=== PATIENT | female | born 1995 | race Caucasian/White ===

== ENCOUNTER 2022-04-26 23:40 | Inpatient (IN) ==
[2022-04-27] MEDS ORDERED: VANCOMYCIN CONSULT ACTIVE PRN ×2 (00:12→05:45)
[2022-04-27] MEDS ORDERED: PIPERACILLIN/TAZOBACTAM 4.5 GM/120 ML BAG IV ONE (00:12)
[2022-04-27] MEDS ORDERED: VANCOMYCIN HCL 2,250 MG in SODIUM CHLORIDE 0.9% 500 ML IV ONE (00:12)
[2022-04-27] MEDS ORDERED: SODIUM CHLORIDE 0.9% 1000ML 1,000 ML IV ONE (00:12)
[2022-04-27] MEDS ORDERED: ONDANSETRON INJ 2 MG/ML 2 ML VIAL IV STA (00:14)
[2022-04-27] MEDS ORDERED: MoRPHine SULFATE 4 MG/ML 1 ML CARP\\VIAL IV STA ×2 (00:14→02:20)
[2022-04-27] MEDS ORDERED: diphenhydrAMINE 50 MG/ML VIAL IV STA (00:14)
[2022-04-27] MEDS ORDERED: SODIUM CHLORIDE 0.9% 1000ML 1,000 ML IV SCH (00:15)
[2022-04-27 00:48] LABS: Appearance Urine Cloudy (Clear); Bacteria Urine Automated Negative (Negative); Bilirubin Urine Negative (Negative); Blood Urine Negative (Negative); Color Urine Yellow; Epithelial Cell Urine Auto >30 /lpf (0-5); Glucose Urine UA Negative (Negative); Ketones Urine Trace (Negative); Leukocyte Esterase Urine Trace (Negative); Nitrite Urine Negative (Negative); Protein Urine Trace (Negative); RBC Urine Automated 0-4 /hpf (0-4); Specific Gravity Urine 1.031 (1.000-1.030); Urobilinogen Urine Negative (Negative); pH Urine 5.5 (4.5-7.5)
--- NOTE | 2022-04-27 00:52 | Emergency Department Note ---
History of Present Illness General Chief complaint: Nausea Stated complaint: FEVER, NAUSEA,SOB Time Seen by Provider: 04/27/22 00:01 History of Present Illness Maximum Pain Intensity: 9 This 27-year-old female with a history of sepsis and gastroparesis with a PICC line in presents the ER complaining of fever, chills, abdominal pain with concerns for sepsis. Patient has paperwork from her family doctor as she is from [place] which outlines her treatment plan. Patient states she she feels like she is septic again and is concerned about her abdominal pain. Patient denies chest pain, neck stiffness, sore throat. Patient states she was septic last January. Home Medications Medication Instructions Recorded Confirmed Type alprazolam 0.5 mg disintegrating 0.5 mg PO TID PRN Anxiety 04/27/22 04/27/22 History tablet budesonide-formoterol HFA 160 2 puff inhalation BID 04/27/22 04/27/22 History mcg-4.5 mcg/actuation aerosol inhaler (Symbicort) oxycodone 5 mg/5 mL oral solution 5 mg PO Q4 04/27/22 04/27/22 History Allergies Allergy/AdvReac Type Severity Reaction Status Date / Time dicyclomine [From Bentyl] Allergy Severe Anaphylaxis Verified 05/22/21 22:54 levofloxacin [From Levaquin] Allergy Intermediate ITCHY HIVES Verified 05/22/21 22:54 metoclopramide [From Reglan] Allergy Intermediate ITCHY HIVES Verified 05/22/21 22:54 Past Med/Surg History Medical History Gastroparesis Surgical History History of appendectomy History of cholecystectomy Social History Smoking Status: Never smoker Preferred Language: Citizen Of [place] Feels Safe at Home: Yes Review of Systems A total of 10 systems reviewed and were otherwise negative Physical Exam Vital Signs Vital Signs - 24 hr 04/26/22 23:53 04/27/22 01:24 04/27/22 02:00 Temperature 37.4 C Temperature Source Oral Pulse Rate 112 H 103 H 105 H Respiratory Rate 22 15 17 Respiratory Effort / Characteristics Non-Labored Spontaneous Respiratory Depth Normal Blood Pressure 135/100 116/78 114/74 Blood Pressure Mean 111 90 87 Pulse Oximetry 100 96 97 Oxygen Delivery Method Room Air Room Air Room Air Sepsis Recent Fever Within 48 Hours Yes Sepsis New/Unexplained Change in Mental Status No Sepsis Action Taken by Nursing Physician Notified 04/27/22 02:30 Temperature Temperature Source Pulse Rate 101 H Respiratory Rate 17 Respiratory Effort / Characteristics Respiratory Depth Blood Pressure 121/81 Blood Pressure Mean 94 Pulse Oximetry 97 Oxygen Delivery Method Room Air Sepsis Recent Fever Within 48 Hours Sepsis New/Unexplained Change in Mental Status Sepsis Action Taken by Nursing VITALS: Vitals are noted on the nurse's note and reviewed by myself. Vital signs low-grade fever. GENERAL: Pleasant female, in no acute distress, nondiaphoretic, well-developed well-nourished. SKIN: The skin was without rashes, erythema, edema, or bruising. There is no tenting of the skin. Capillary reflex less than 2 seconds. HEAD: Normocephalic atraumatic. EARS: External auditory canals clear, tympanic membranes pearly smith without erythema or effusion bilaterally. EYES: Pupils equal round and reactive to light and accommodation. Conjunctivae without injection, sclerae without icterus. Extraocular movements intact. NOSE: Patent, turbinates without inflammation or discharge. MOUTH: Mucous membranes moist. Pharynx without erythema or exudate. Uvula midline. Airway patent. Tongue does not deviate. NECK: Supple without nuchal rigidity. No lymphadenopathy. No thyromegaly. Cervical spine is nontender. No JVD. HEART: Regular rate and rhythm LUNGS: Clear to auscultation bilaterally without wheezes, rales or rhonchi. No retractions or accessory muscle use. ABDOMEN: Positive bowel sounds x 4. Normal tympanic percussion. Soft, tender mid abdomen, without masses or organomegaly. Mishra sign negative. No guarding or rebound tenderness. No CVA tenderness MUSCULOSKELETAL: No muscle atrophy, erythema, or edema noted. NEURO: Patient was alert and oriented to person place and time. Normal sensation to light and sharp touch. No focal neurological deficits. Course Administered Medications Discontinued Medications Diphenhydramine HCl (Diphenhydramine 50 Mg/Ml Vial) 50 mg IV NOW STA Stop: 04/27/22 00:15 Last Admin: 04/27/22 01:00 Dose: 50 mg Documented By: YANA Sodium Chloride (Nss 1000ml) 1,000 mls @ 999 mls/hr IV .Q1H1M WILBERT Stop: 04/27/22 01:15 Last Admin: 04/27/22 02:28 Dose: 999 mls/hr Documented By: YANA Sodium Chloride (Nss 1000ml) 1,000 mls @ 999 mls/hr IV .Q1H1M ONE Stop: 04/27/22 01:12 Last Infusion: 04/27/22 02:35 Dose: 0 mls/hr Documented By: Admin: 04/27/22 01:00 Dose: 999 mls/hr Documented By: YAAN Piperacillin Sod/Tazobactam Sod (Zosyn) 4.5 gm in 120 mls @ 240 mls/hr IV NOW ONE Stop: 04/27/22 00:41 Last Infusion: 04/27/22 01:35 Dose: 0 mls/hr Documented By: Admin: 04/27/22 01:04 Dose: 240 mls/hr Documented By: YANA Vancomycin HCl 2,250 mg/ (Sodium Chloride) 545 mls @ 200 mls/hr IV NOW ONE Stop: 04/27/22 02:55 Last Admin: 04/27/22 00:25 Dose: 200 mls/hr Documented By: YANA Ioversol (Optiray 350 100ml) 86 ml IV ONCE ONE Stop: 04/27/22 01:52 Last Admin: 04/27/22 01:51 Dose: 86 ml Documented By: ALEXANDER Lorazepam (Lorazepam 2 Mg/1 Ml Vial) 1 mg IV NOW STA Stop: 04/27/22 02:21 Last Admin: 04/27/22 02:26 Dose: 1 mg Documented By: YANA Morphine Sulfate (Morphine Sulfate 4 Mg/Ml 1 Ml Carp\Vial) 4 mg IV NOW STA Stop: 04/27/22 00:15 Last Admin: 04/27/22 01:04 Dose: 4 mg Documented By: YANA Morphine Sulfate (Morphine Sulfate 4 Mg/Ml 1 Ml Carp\Vial) 4 mg IV NOW STA Stop: 04/27/22 02:21 Last Admin: 04/27/22 02:27 Dose: 4 mg Documented By: YANA Ondansetron HCl (Ondansetron Inj 2 Mg/Ml 2 Ml Vial) 4 mg IV NOW STA Stop: 04/27/22 00:15 Last Admin: 04/27/22 01:00 Dose: 4 mg Documented By: YANA Medical Decision Making Medical Records Attestation: I reviewed the patient's medical records. Home Medications Current Medication List: was personally reviewed by me Laboratory Data Attestation: I reviewed the patient's lab results. 04/27/22 00:20 04/27/22 00:20 Lab Results 04/27/22 04/27/22 04/27/22 Range/Units 00:05 00:20 00:20 WBC 8.09 (4.8-10.8) K/ul RBC 4.87 (4.20-5.40) M/uL Hgb 14.5 (12.0-16.0) g/dl Hct 42.5 (37.0-47.0) % MCV 87.3 (80.0-100.0) fL MCH 29.8 (25.0-34.0) pg MCHC 34.1 (32.0-36.0) g/dL RDW Std Deviation 40.0 (36.4-46.3) fL RDW Coeff of Dawson 12.8 (11.5-14.5) % Plt Count 271 (130-400) K/uL MPV 11.9 (9.4-12.4) fL Immature Gran % (Auto) 0.1 % Neut % (Auto) 51.7 % Lymph % (Auto) 33.1 % Weston % (Auto) 8.4 % Eos % (Auto) 5.2 % Baso % (Auto) 1.5 % Neut # (Auto) 4.18 (1.40-6.50) K/uL Lymph # (Auto) 2.68 (1.2-3.4) K/uL Weston # (Auto) 0.68 H (0.11-0.59) K/uL Eos # (Auto) 0.42 (0-0.50) K/uL Baso # (Auto) 0.12 (0-0.2) K/uL Immature Gran # (Auto) 0.01 (0.01-0.20) K/uL Sodium 139 (136-145) mmol/L Potassium 3.3 L (3.5-5.1) mmol/L Chloride 105 (98-107) mmol/L Carbon Dioxide 26 (21-32) mmol/L Anion Gap 8 (3-11) BUN 11 (6-23) mg/dl Creatinine 1.04 (0.6-1.2) mg/dl Est Cr Clr Drug Dosing 94.3 ml/min Est GFR ( Amer) 84.7 ml/min Est GFR (Non-Af Amer) 73.1 ml/min BUN/Creatinine Ratio 10.6 (10-20) Glucose 63 L (70-99(Fasting)) mg/dl POC Glucose (70-99) mg/dl Lactate (0.4-2.0) mmol/L Calcium 9.8 (8.5-10.1) mg/dl Magnesium 1.9 (1.7-2.4) mg/dl Total Bilirubin 0.5 (0.2-1.0) mg/dl Direct Bilirubin 0.0 (0-0.2) mg/dl AST 21 (13-39) U/L ALT 16 (7-52) U/L Alkaline Phosphatase 61 (34-104) U/L Troponin I High Sens 3.0 (0-14) pg/ml Total Protein 9.2 H (6.0-8.3) gm/dl Albumin 4.9 (3.4-5.0) gm/dl Lipase 19 (11-82) U/L Procalcitonin (0-0.5) ng/ml HCG, Qual (Negative) Urine Color Yellow Urine Appearance Cloudy A (Clear) Urine pH 5.5 (4.5-7.5) Ur Specific Turner 1.031 H (1.000-1.030) Urine Protein Trace H (Negative) Urine Glucose (UA) Negative (Negative) Urine Ketones Trace H (Negative) Urine Blood Negative (Negative) Urine Nitrite Negative (Negative) Urine Bilirubin Negative (Negative) Urine Urobilinogen Negative (Negative) Ur Leukocyte Esterase Trace H (Negative) Urine WBC (Auto) 5-10 H (0-5) /hpf Urine RBC (Auto) 0-4 (0-4) /hpf U Hyaline Cast (Auto) 1-5 (0-5) /lpf U Epithel Cells (Auto) >30 H (0-5) /lpf Urine Bacteria (Auto) Negative (Negative) Adenovirus (PCR) (NotDetected) B. pertussis DNA (PCR) (NotDetected) B.parapertussis DNA PCR (NotDetected) C. pneumoniae DNA (PCR) (NotDetected) Coronavirus OC43 (PCR) (NotDetected) Coronavirus HKU1 (PCR) (NotDetected) Coronavirus 229E (PCR) (NotDetected) SARS-CoV-2 (PCR) (NotDetected) Coronavirus NL63 (PCR) (NotDetected) Human Metapneumovir PCR (NotDetected) Influenza Type A (PCR) (NotDetected) Influenza Type B (PCR) (NotDetected) M. pneumoniae (PCR) (NotDetected) Parainfluenza 1 (PCR) (NotDetected) Parainfluenza 2 (PCR) (NotDetected) Parainfluenza 3 (PCR) (NotDetected) Parainfluenza 4 (PCR) (NotDetected) RSV (PCR) (NotDetected) Entero/Rhino (PCR) (NotDetected) 04/27/22 04/27/22 04/27/22 Range/Units 00:20 00:25 01:03 WBC (4.8-10.8) K/ul RBC (4.20-5.40) M/uL Hgb (12.0-16.0) g/dl Hct (37.0-47.0) % MCV (80.0-100.0) fL MCH (25.0-34.0) pg MCHC (32.0-36.0) g/dL RDW Std Deviation (36.4-46.3) fL RDW Coeff of Dawson (11.5-14.5) % Plt Count (130-400) K/uL MPV (9.4-12.4) fL Immature Gran % (Auto) % Neut % (Auto) % Lymph % (Auto) % Weston % (Auto) % Eos % (Auto) % Baso % (Auto) % Neut # (Auto) (1.40-6.50) K/uL Lymph # (Auto) (1.2-3.4) K/uL Weston # (Auto) (0.11-0.59) K/uL Eos # (Auto) (0-0.50) K/uL Baso # (Auto) (0-0.2) K/uL Immature Gran # (Auto) (0.01-0.20) K/uL Sodium (136-145) mmol/L Potassium (3.5-5.1) mmol/L Chloride (98-107) mmol/L Carbon Dioxide (21-32) mmol/L Anion Gap (3-11) BUN (6-23) mg/dl Creatinine (0.6-1.2) mg/dl Est Cr Clr Drug Dosing ml/min Est GFR ( Amer) ml/min Est GFR (Non-Af Amer) ml/min BUN/Creatinine Ratio (10-20) Glucose (70-99(Fasting)) mg/dl POC Glucose (70-99) mg/dl Lactate 1.3 (0.4-2.0) mmol/L Calcium (8.5-10.1) mg/dl Magnesium (1.7-2.4) mg/dl Total Bilirubin (0.2-1.0) mg/dl Direct Bilirubin (0-0.2) mg/dl AST (13-39) U/L ALT (7-52) U/L Alkaline Phosphatase (34-104) U/L Troponin I High Sens (0-14) pg/ml Total Protein (6.0-8.3) gm/dl Albumin (3.4-5.0) gm/dl Lipase (11-82) U/L Procalcitonin < 0.05 (0-0.5) ng/ml HCG, Qual Negative (Negative) Urine Color Urine Appearance (Clear) Urine pH (4.5-7.5) Ur Specific Turner (1.000-1.030) Urine Protein (Negative) Urine Glucose (UA) (Negative) Urine Ketones (Negative) Urine Blood (Negative) Urine Nitrite (Negative) Urine Bilirubin (Negative) Urine Urobilinogen (Negative) Ur Leukocyte Esterase (Negative) Urine WBC (Auto) (0-5) /hpf Urine RBC (Auto) (0-4) /hpf U Hyaline Cast (Auto) (0-5) /lpf U Epithel Cells (Auto) (0-5) /lpf Urine Bacteria (Auto) (Negative) Adenovirus (PCR) Not Detected (NotDetected) B. pertussis DNA (PCR) Not Detected (NotDetected) B.parapertussis DNA PCR Not Detected (NotDetected) C. pneumoniae DNA (PCR) Not Detected (NotDetected) Coronavirus OC43 (PCR) Not Detected (NotDetected) Coronavirus HKU1 (PCR) Not Detected (NotDetected) Coronavirus 229E (PCR) Not Detected (NotDetected) SARS-CoV-2 (PCR) Not Detected (NotDetected) Coronavirus NL63 (PCR) Not Detected (NotDetected) Human Metapneumovir PCR Not Detected (NotDetected) Influenza Type A (PCR) Not Detected (NotDetected) Influenza Type B (PCR) Not Detected (NotDetected) M. pneumoniae (PCR) Not Detected (NotDetected) Parainfluenza 1 (PCR) Not Detected (NotDetected) Parainfluenza 2 (PCR) Not Detected (NotDetected) Parainfluenza 3 (PCR) Not Detected (NotDetected) Parainfluenza 4 (PCR) Not Detected (NotDetected) RSV (PCR) Not Detected (NotDetected) Entero/Rhino (PCR) Not Detected (NotDetected) 04/27/22 Range/Units 02:10 WBC (4.8-10.8) K/ul RBC (4.20-5.40) M/uL Hgb (12.0-16.0) g/dl Hct (37.0-47.0) % MCV (80.0-100.0) fL MCH (25.0-34.0) pg MCHC (32.0-36.0) g/dL RDW Std Deviation (36.4-46.3) fL RDW Coeff of Dawson (11.5-14.5) % Plt Count (130-400) K/uL MPV (9.4-12.4) fL Immature Gran % (Auto) % Neut % (Auto) % Lymph % (Auto) % Weston % (Auto) % Eos % (Auto) % Baso % (Auto) % Neut # (Auto) (1.40-6.50) K/uL Lymph # (Auto) (1.2-3.4) K/uL Weston # (Auto) (0.11-0.59) K/uL Eos # (Auto) (0-0.50) K/uL Baso # (Auto) (0-0.2) K/uL Immature Gran # (Auto) (0.01-0.20) K/uL Sodium (136-145) mmol/L Potassium (3.5-5.1) mmol/L Chloride (98-107) mmol/L Carbon Dioxide (21-32) mmol/L Anion Gap (3-11) BUN (6-23) mg/dl Creatinine (0.6-1.2) mg/dl Est Cr Clr Drug Dosing ml/min Est GFR ( Amer) ml/min Est GFR (Non-Af Amer) ml/min BUN/Creatinine Ratio (10-20) Glucose (70-99(Fasting)) mg/dl POC Glucose 87 (70-99) mg/dl Lactate (0.4-2.0) mmol/L Calcium (8.5-10.1) mg/dl Magnesium (1.7-2.4) mg/dl Total Bilirubin (0.2-1.0) mg/dl Direct Bilirubin (0-0.2) mg/dl AST (13-39) U/L ALT (7-52) U/L Alkaline Phosphatase (34-104) U/L Troponin I High Sens (0-14) pg/ml Total Protein (6.0-8.3) gm/dl Albumin (3.4-5.0) gm/dl Lipase (11-82) U/L Procalcitonin (0-0.5) ng/ml HCG, Qual (Negative) Urine Color Urine Appearance (Clear) Urine pH (4.5-7.5) Ur Specific Turner (1.000-1.030) Urine Protein (Negative) Urine Glucose (UA) (Negative) Urine Ketones (Negative) Urine Blood (Negative) Urine Nitrite (Negative) Urine Bilirubin (Negative) Urine Urobilinogen (Negative) Ur Leukocyte Esterase (Negative) Urine WBC (Auto) (0-5) /hpf Urine RBC (Auto) (0-4) /hpf U Hyaline Cast (Auto) (0-5) /lpf U Epithel Cells (Auto) (0-5) /lpf Urine Bacteria (Auto) (Negative) Adenovirus (PCR) (NotDetected) B. pertussis DNA (PCR) (NotDetected) B.parapertussis DNA PCR (NotDetected) C. pneumoniae DNA (PCR) (NotDetected) Coronavirus OC43 (PCR) (NotDetected) Coronavirus HKU1 (PCR) (NotDetected) Coronavirus 229E (PCR) (NotDetected) SARS-CoV-2 (PCR) (NotDetected) Coronavirus NL63 (PCR) (NotDetected) Human Metapneumovir PCR (NotDetected) Influenza Type A (PCR) (NotDetected) Influenza Type B (PCR) (NotDetected) M. pneumoniae (PCR) (NotDetected) Parainfluenza 1 (PCR) (NotDetected) Parainfluenza 2 (PCR) (NotDetected) Parainfluenza 3 (PCR) (NotDetected) Parainfluenza 4 (PCR) (NotDetected) RSV (PCR) (NotDetected) Entero/Rhino (PCR) (NotDetected) Imaging Data Attestation: I personally reviewed and interpreted this imaging study as follows: MDM Narrative Prior records/ancillary studies reviewed. Triage Nursing notes reviewed. Additional history obtained from nurse. The patient's history was concerning for fever, chills, abdominal pain. Differential diagnosis: Etiologies such as sepsis, UTI, pneumonia, metabolic, electrolyte abnormalities, cardiac sources, intracerebral event, toxicologic, neurologic, as well as others were entertained. Physical examination: As above. Pertinent findings were abdomen pain. Vital signs reviewed and revealed low-grade fever. ER treatment provided: IV fluid resuscitation with Normal saline solution, IV fluid bolus Blood and urine cultures Antibiotics: Zosyn and vancomycin Zofran Benadryl and morphine for pain were ordered Patient was still having pain and morphine and Ativan were ordered An order was placed for continuous cardiac monitoring. The monitor shows a rate of 60-130 with a sinus rhythm per my interpretation. On reassessment the patient vital signs improved. Diagnostics interpretation by me: ECG: Ordered for infection EKG: Normal sinus, normal intervals, no acute ST-T changes. Impression normal sinus rhythm interpreted by myself I think arrhythmia is unlikely. EKG shows normal sinus rhythm with no interval abnormalities such as QT prolongation or WPW. There are no findings to suggest Brugada syndrome. Cardiac monitoring in the emergency department reveals no tachycardic or bradycardic dysrhythmia. Hypertrophic cardiomyopathy was considered but there are no clear historical elements pointing toward this. EKG is not suggestive. The QRS voltage is not extremely large and there are no suggestive Q waves. The labs Independently Interpreted by myself revealed no worrisome leukocytosis on CBC. Chemistry panel revealed hyperglycemia and repeat blood sugar was stable. LFTs revealed. Cardiac enzymes were negative. Serum Lactate measurement was negative. Blood and urine cultures are pending. Urine without signs of infection. Negative [employer] Imaging studies: Chest x-ray with no acute consolidation, pneumothorax or free air per my independent interpretation CT ABDOMEN & PELVIS With Contrast: No acute abnormality to explain patient's mid abdominal pain. Polypoid structure and nearby possible surgical clips in stomach, correlate with surgical history and advise follow-up as indicated. Small left renal stone. Appendectomy. Central venous catheter tip in right atrium. Cholecystectomy. Radiologist: Shannon Garg MD Consultation: A consultation was placed with the hospitalist. The case was discussed and diagnostics were reviewed. The patient was evaluated in the ER for further treatment. Exam and history are concerning for sepsis. Labs and advanced imaging were independently interpreted by myself. Radiology read the CAT scan. patient has a history of PICC line infections. 1 blood culture was pulled out the PICC line. Advanced imaging was negative for acute findings. X-ray is clear. Negative urine. Procalcitonin was negative. Patient was given broad-spectrum antibiotics as outlined by her treatment plan by her family doctor. Medicine was consulted and the case was discussed. She will be admitted to the medical service. The chart was completed utilizing [employer] Speech voice recognition software. Grammatical errors, random word insertions, pronoun errors, and incomplete sentences are an occassional consequence of this system due to software limitations, ambient noise, and hardware issues. Any formal questions or concerns about the content, text, or information contained within the body of this dictation should be directly addressed to the physician physiotherapist's assistant for clarification. Impression & Plan Sepsis, Abdominal pain, acute Discharge Plan Visit Data Chief Complaint: Nausea Stated Complaint: FEVER, NAUSEA,SOB ED Provider: Shreyas Rodriguez ED Midlevel Provider: Nancy Stapleton Discharge Problem: Sepsis, Abdominal pain, acute Patient Disposition: Admitted As Inpatient Condition: Good Forms Stand Alone Forms: [employer] [facility] Prescriptions Prescriptions: No Action oxycodone 5 mg/5 mL solution 5 mg PO Q4 Rx Instructions: for 7 days ordered 04/25/22 alprazolam 0.5 mg tablet,disintegrating 0.5 mg PO TID PRN (Reason: Anxiety) budesonide-formoterol [Symbicort] 160-4.5 mcg/actuation HFA aerosol inhaler 2 puff INHALATION BID Referrals Referrals: PCP,NO [Primary Care Provider] - : Sepsis Qualifiers: Sepsis type: sepsis due to unspecified organism Sepsis acute organ dysfunction status: unspecified Qualified Code(s): A41.9 - Sepsis, unspecified organism
[2022-04-27 00:59] LABS: Basophils # (auto) 0.12 K/uL (0-0.2); Basophils % (auto) 1.5 %; Eosinophils # (auto) 0.42 K/uL (0-0.50); Eosinophils % (auto) 5.2 %; Hematocrit (blood only) 42.5 % (37.0-47.0); Hemoglobin 14.5 g/dl (12.0-16.0); Immature Granulocytes # (auto) 0.01 K/uL (0.01-0.20); Immature Granulocytes % (auto) 0.1 %; Lymphocytes # (auto) 2.68 K/uL (1.2-3.4); Lymphocytes % (auto) 33.1 %; Mean Corpuscular Hemoglobin 29.8 pg (25.0-34.0); Mean Corpuscular Hgb Conc 34.1 g/dL (32.0-36.0); Mean Corpuscular Volume 87.3 fL (80.0-100.0); Mean Platelet Volume 11.9 fL (9.4-12.4); Monocytes # (auto) 0.68 K/uL (0.11-0.59); Monocytes % (auto) 8.4 %; Neutrophils # (auto) 4.18 K/uL (1.40-6.50); Neutrophils % (auto) 51.7 %; Platelet Count 271 K/uL (130-400); RDW Coefficient of Variation 12.8 % (11.5-14.5); Red Blood Count 4.87 M/uL (4.20-5.40); White Blood Count 8.09 K/ul (4.8-10.8)
[2022-04-27 01:04] LABS: Albumin Level 4.9 gm/dl (3.4-5.0); Bilirubin,Total 0.5 mg/dl (0.2-1.0); Calcium 9.8 mg/dl (8.5-10.1); Magnesium 1.9 mg/dl (1.7-2.4); Potassium 3.3 mmol/L (3.5-5.1)
[2022-04-27 01:10] LABS: BUN Creatinine Ratio 10.6 (10-20); Creatinine Clr Calc Pharmacy 94.3 ml/min; Est GFR (African American) 84.7 ml/min; Est GFR (Non-African American) 73.1 ml/min; Total Protein 9.2 gm/dl (6.0-8.3)
[2022-04-27] MEDS ORDERED: DEXTROSE 50% 50 ML SYRINGE IV STA (01:39)
[2022-04-27 01:41] LABS: Adenovirus PCR Not Detected (NotDetected); Bordetella parapertussis PCR Not Detected (NotDetected); Bordetella pertussis PCR Not Detected (NotDetected); Chlamydia pneumoniae PCR Not Detected (NotDetected); Coronavirus 229E PCR Not Detected (NotDetected); Coronavirus CoV-2 (COVID19)PCR Not Detected (NotDetected); Coronavirus HKU1 PCR Not Detected (NotDetected); Coronavirus NL63 PCR Not Detected (NotDetected); Coronavirus OC43PCR Not Detected (NotDetected); Human Metapneumovirus PCR Not Detected (NotDetected); Influenza A PCR Not Detected (NotDetected); Influenza B PCR Not Detected (NotDetected); Mycoplasma pneumoniae PCR Not Detected (NotDetected); Parainfluenza Virus 1 PCR Not Detected (NotDetected); Parainfluenza Virus 2 PCR Not Detected (NotDetected); Parainfluenza Virus 3 PCR Not Detected (NotDetected); Parainfluenza Virus 4 PCR Not Detected (NotDetected); Respiratory Syncytial VirusPCR Not Detected (NotDetected); Rhinovirus/Enterovirus PCR Not Detected (NotDetected)
[2022-04-27 01:48] LABS: Pregnancy Test, Serum Negative (Negative)
[2022-04-27] MEDS ORDERED: OPTIRAY 350 100ml IV ONE (01:51)
[2022-04-27 02:04] LABS: Procalcitonin < 0.05 ng/ml (0-0.5)
[2022-04-27] MEDS ORDERED: LORazepam 2 MG/1 ML VIAL IV STA (02:20)
--- NOTE | 2022-04-27 03:51 | History & Physical Report ---
Date of Service April 27, 2022 Assessment & Plan (1) Sepsis: Plan: 27-year-old female with history of gastroparesis, intestinal malabsorption on TPN therapy via right tunneled Brink catheter, episodic hypoglycemia and frequent sepsis presents with concern for sepsis. Patient reports erratic blood sugars over the last several days. She experienced fever, chills, nausea and abdominal pain shortly after starting her TPN infusion this evening around 9 PM. Patient presently afebrile. She does report a temperature of 100.7 prior to arrival. She is tachycardic. Her white blood cell count as well as procalcitonin are unremarkable. At this point in time patient does not meet sepsis criteria. However, she has high risk for infection given her history of multiples episodes of sepsis in the past as well as indwelling catheter and ongoing TPN therapy. She is complaining of significant nausea, abdominal pain as well as generalized pain which she reports is common for her infections. Observation to medical Follow cultures sent from ER. Blood culture drawn from indwelling catheter as well as from peripheral site Continue vancomycin and Zosyn for now Repeat chemistry, LFTs and CBC in the morning Check CRP with a.m. labs Zofran every 6 hours for nausea Benadryl every 6 hours for nausea Ativan 1 mg IV every 8 hours as needed for anxiety or nausea Morphine per tiered pain scale Communication order placed for nursing to assist in obtaining patient's outpatient records. They may be helpful given her complicated history (2) Gastroparesis: Plan: Patient with history of gastroparesis. She takes very little by mouth. She is on TPN nightly Zofran as needed for nausea Benadryl as needed for nausea Ativan as needed for anxiety or nausea Aspiration precautions Morphine as needed for pain Protonix 40 mg IV daily (3) Intestinal malabsorption: Plan: Patient reports longstanding history of intestinal malabsorption. She is to be evaluated at [facility] next month for consideration of an intestinal transplant TPNpharmacy consultation placedpatient reports she runs her TPN over 12 hours at night. Typically begins at 9 PM. She does have her TPN with her in her bag. Patient reports she does not do well with oral medications. IV, inhaled or dissolvable were able (4) Hypoglycemia: Plan: Patient with episodic hypoglycemia. She has a Dexcom in place. Blood sugar on arrival today = 63. She was given D50. Presently feels well with no complaints Hypoglycemia protocol placed F/E/NLR +20 mEq potassium at 125 mL/h x 2 L, K = 3.3, repleterepeat chemistry in the morning, n.p.o. except medications. TPN per pharmacy ProphylaxisLovenox Codefull Dispositionobservation to medical History of Present Illness Chief Complaint: concern for sepsis Primary Care Provider: NO PCP Yossi Garcia is a 27-year-old female presenting with concern for early sepsis. Patient with history of gastroparesis, intestinal malabsorption and episodic hypoglycemia. She has a PICC line in place for TPN and medication administration. Patient has had multiple episodes of sepsis and bacteremia in the past. Her infections seem to involve the line. She has also had infections that were thought to be secondary to bacterial translocation from her gut. Her last line infection was in January 2022. She reports that the pathogen was Staphylococcus. She does not think that it was aureus and for sure knows it was not MRSA. She had an echocardiogram performed which she reports is being normal. She had her port removed and placement of a PICC line to complete her course of IV antibiotics. After her blood cultures were cleared she had a double-lumen Brink placed on 03/06/[address] to this day. She resides in [place], [place] and is currently visiting family in the [place] area. Patient reports episodes of hypoglycemia over the last 2 to 3 days. Blood sugar at times will drop into the 50s. This evening patient hooked up to her TPN. Approximate 15 minutes after her infusion started she got chills, severe nausea, abdominal pain and body aches. She checked her temperature at that time and it was 100.7. Patient subsequently came to the ER for further evaluation due to concern for early sepsis. She denies URI/cough/cold symptoms, denies diarrhea, denies urinary complaints, denies skin rash or joint pain. In the ER patient is afebrile, tachycardic at 112 bpm, blood pressure is stable. No respiratory distress, saturating well on room air. She is complaining of abdominal pain as well as full body pain and feeling sick. ER course: Normal saline x2 L Morphine 4 mg IV x2 doses Ativan 1 mg IV Zosyn 4.5 g IV Zofran 4 mg IV Benadryl 50 mg IV Vancomycin Allergies Allergy/AdvReac Type Severity Reaction Status Date / Time dicyclomine [From Bentyl] Allergy Severe Anaphylaxis Verified 05/22/21 22:54 levofloxacin [From Levaquin] Allergy Intermediate ITCHY HIVES Verified 05/22/21 22:54 metoclopramide [From Reglan] Allergy Intermediate ITCHY HIVES Verified 05/22/21 22:54 Home Medications Medication Instructions Recorded Confirmed Type alprazolam 0.5 mg disintegrating 0.5 mg PO TID PRN Anxiety 04/27/22 04/27/22 History tablet budesonide-formoterol HFA 160 2 puff inhalation BID 04/27/22 04/27/22 History mcg-4.5 mcg/actuation aerosol inhaler (Symbicort) oxycodone 5 mg/5 mL oral solution 5 mg PO Q4 04/27/22 04/27/22 History Past Med/Surg History Medical History Dysautonomia Gastroparesis Hypoglycemia Intestinal malabsorption Surgical History History of appendectomy History of cholecystectomy S/P PICC central line placement Family History (Updated 04/27/22 @ 03:32 by Kamala Thurston DO) Other Cancer Hypertension Social History (Updated 04/27/22 @ 03:32 by Kamala Thurston DO) Smoking Status: Never smoker Hx Alcohol Use: No Hx Substance Use: Yes Prescribed Medications: Marijuana Preferred Language: German Feels Safe at Home: Yes Review of Systems Review of Systems: All systems reviewed & are unremarkable except as noted in HPI & below Physical Exam Physical Exam: General: patient resting comfortably, NAD, appears tired and ill but nontoxic dry, AA&O x 4 Skin: warm, dry, intact, no rashes or lesions. No Osler's nodes, [place]ay lesions, or splinter hemorrhaging noted on digits HEENT: NC/AT, PERRL, EOMI, anicteric sclera, conjunctiva without injection, external ear normal to inspection and nontender, nares patent, dry mucus membranes, dentition intact, no oropharyngeal lesions, neck supple, trachea midline, no LAD, no thyromegaly, no JVD Heart: +S1/S2, regular, tachycardic, no m/r/g, right chest Brink in place with mild tenderness to palpation Lungs: equal air entry bilaterally, no rales/rhonchi/wheezes Abd: +BS, soft, ND, diffusely tender without rebound or guarding, no masses/organomegaly/ascites Ext: warm, 2+ pulses in UE/LE bilaterally, no clubbing/cyanosis or edema Neuro: nonfocal, patient AA&O x 4, speech intact, no facial droop, moving all extremities on command with equal strength 5/5 Results & Data Results & Data ([facility]) Vital Signs (Past 12 Hours) Vital Signs Temp Pulse Resp BP Pulse Ox O2 Del Method 04/27/22 02:30 101 H 17 121/81 97 Room Air 04/27/22 02:00 105 H 17 114/74 97 Room Air 04/27/22 01:24 103 H 15 116/78 96 Room Air 04/26/22 23:53 37.4 C 112 H 22 135/100 100 Room Air Laboratory Results Laboratory Results WBC 8.09 K/ul (4.8-10.8) 04/27/22 00:20 RBC 4.87 M/uL (4.20-5.40) 04/27/22 00:20 Hgb 14.5 g/dl (12.0-16.0) 04/27/22 00:20 Hct 42.5 % (37.0-47.0) 04/27/22 00:20 MCV 87.3 fL (80.0-100.0) 04/27/22 00:20 MCH 29.8 pg (25.0-34.0) 04/27/22 00:20 MCHC 34.1 g/dL (32.0-36.0) 04/27/22 00:20 RDW Std Deviation 40.0 fL (36.4-46.3) 04/27/22 00:20 RDW Coeff of Dawson 12.8 % (11.5-14.5) 04/27/22 00:20 Plt Count 271 K/uL (130-400) 04/27/22 00:20 MPV 11.9 fL (9.4-12.4) 04/27/22 00:20 Immature Gran % (Auto) 0.1 % 02/11/23 00:20 Neut % (Auto) 51.7 % 04/27/22 00:20 Lymph % (Auto) 33.1 % 04/27/22 00:20 Castro % (Auto) 8.4 % 04/27/22 00:20 Eos % (Auto) 5.2 % 04/27/22 00:20 Baso % (Auto) 1.5 % 04/27/22 00:20 Neut # (Auto) 4.18 K/uL (1.40-6.50) 04/27/22 00:20 Lymph # (Auto) 2.68 K/uL (1.2-3.4) 04/27/22 00:20 Castro # (Auto) 0.68 K/uL (0.11-0.59) H 04/27/22 00:20 Eos # (Auto) 0.42 K/uL (0-0.50) 04/27/22 00:20 Baso # (Auto) 0.12 K/uL (0-0.2) 04/27/22 00:20 Immature Gran # (Auto) 0.01 K/uL (0.01-0.20) 04/27/22 00:20 Sodium 139 mmol/L (136-145) 04/27/22 00:20 Potassium 3.3 mmol/L (3.5-5.1) L 04/27/22 00:20 Chloride 105 mmol/L (98-107) 04/27/22 00:20 Carbon Dioxide 26 mmol/L (21-32) 04/27/22 00:20 Anion Gap 8 (3-11) 04/27/22 00:20 BUN 11 mg/dl (6-23) 04/27/22 00:20 Creatinine 1.04 mg/dl (0.6-1.2) 04/27/22 00:20 Est Cr Clr Drug Dosing 94.3 ml/min 04/27/22 00:20 Est GFR ( Amer) 84.7 ml/min 04/27/22 00:20 Est GFR (Non-Af Amer) 73.1 ml/min 04/27/22 00:20 BUN/Creatinine Ratio 10.6 (10-20) 04/27/22 00:20 Glucose 63 mg/dl (70-99(Fasting)) L 04/27/22 00:20 POC Glucose 87 mg/dl (70-99) 04/27/22 02:10 Lactate 1.3 mmol/L (0.4-2.0) 04/27/22 01:03 Calcium 9.8 mg/dl (8.5-10.1) 04/27/22 00:20 Magnesium 1.9 mg/dl (1.7-2.4) 04/27/22 00:20 Total Bilirubin 0.5 mg/dl (0.2-1.0) 04/27/22 00:20 Direct Bilirubin 0.0 mg/dl (0-0.2) 04/27/22 00:20 AST 21 U/L (13-39) 04/27/22 00:20 ALT 16 U/L (7-52) 04/27/22 00:20 Alkaline Phosphatase 61 U/L (34-104) 04/27/22 00:20 Troponin I High Sens 3.0 pg/ml (0-14) 04/27/22 00:20 Total Protein 9.2 gm/dl (6.0-8.3) H 04/27/22 00:20 Albumin 4.9 gm/dl (3.4-5.0) 04/27/22 00:20 Lipase 19 U/L (11-82) 04/27/22 00:20 Procalcitonin < 0.05 ng/ml (0-0.5) 04/27/22 00:20 HCG, Qual Negative (Negative) 04/27/22 00:20 Urine Color Yellow 04/27/22 00:05 Urine Appearance Cloudy (Clear) A 04/27/22 00:05 Urine pH 5.5 (4.5-7.5) 04/27/22 00:05 Ur Specific [place] 1.031 (1.000-1.030) H 04/27/22 00:05 Urine Protein Trace (Negative) H 04/27/22 00:05 Urine Glucose (UA) Negative (Negative) 04/27/22 00:05 Urine Ketones Trace (Negative) H 04/27/22 00:05 Urine Blood Negative (Negative) 04/27/22 00:05 Urine Nitrite Negative (Negative) 04/27/22 00:05 Urine Bilirubin Negative (Negative) 04/27/22 00:05 Urine Urobilinogen Negative (Negative) 04/27/22 00:05 Ur Leukocyte Esterase Trace (Negative) H 04/27/22 00:05 Urine WBC (Auto) 5-10 /hpf (0-5) H 04/27/22 00:05 Urine RBC (Auto) 0-4 /hpf (0-4) 04/27/22 00:05 U Hyaline Cast (Auto) 1-5 /lpf (0-5) 04/27/22 00:05 U Epithel Cells (Auto) >30 /lpf (0-5) H 04/27/22 00:05 Urine Bacteria (Auto) Negative (Negative) 04/27/22 00:05 Adenovirus (PCR) Not Detected (NotDetected) 04/27/22 00:25 B. pertussis DNA (PCR) Not Detected (NotDetected) 04/27/22 00:25 B.parapertussis DNA PCR Not Detected (NotDetected) 04/27/22 00:25 C. pneumoniae DNA (PCR) Not Detected (NotDetected) 04/27/22 00:25 Coronavirus OC43 (PCR) Not Detected (NotDetected) 04/27/22 00:25 Coronavirus HKU1 (PCR) Not Detected (NotDetected) 04/27/22 00:25 Coronavirus 229E (PCR) Not Detected (NotDetected) 04/27/22 00:25 SARS-CoV-2 (PCR) Not Detected (NotDetected) 04/27/22 00:25 Coronavirus NL63 (PCR) Not Detected (NotDetected) 04/27/22 00:25 Human Metapneumovir PCR Not Detected (NotDetected) 04/27/22 00:25 Influenza Type A (PCR) Not Detected (NotDetected) 04/27/22 00:25 Influenza Type B (PCR) Not Detected (NotDetected) 04/27/22 00:25 M. pneumoniae (PCR) Not Detected (NotDetected) 04/27/22 00:25 Parainfluenza 1 (PCR) Not Detected (NotDetected) 04/27/22 00:25 Parainfluenza 2 (PCR) Not Detected (NotDetected) 04/27/22 00:25 Parainfluenza 3 (PCR) Not Detected (NotDetected) 04/27/22 00:25 Parainfluenza 4 (PCR) Not Detected (NotDetected) 04/27/22 00:25 RSV (PCR) Not Detected (NotDetected) 04/27/22 00:25 Entero/Rhino (PCR) Not Detected (NotDetected) 04/27/22 00:25 Diagnostic Findings Chest x-rayper my interpretationtrachea is midline and air-filled, normal cardiac shadow, no infiltrate, edema. Right-sided tunneled catheter in placetip appears to be in the right atrium CT of the abdomen and pelvis with contrast: Per stat rad No acute abnormality to explain patient's mid abdominal pain. Polypoid structure and near by possible surgical clips in the stomach, correlate with surgical history and advise follow-up as indicated. Small left renal stone. Appendectomy. Central venous catheter tip in the right atrium. Cholecystectomy. Code Status & VTE Plan VTE Prophylaxis Plan VTE Prophylaxis will be ordered: Yes PG Care Time/CCT Total # of Minutes Spent Total Time Spent with Patient: Total time spent is greater than 50% in coordination of care (as documented) at patient's floor/unit and/or counseling patient: Coding Level of Care Code 82655 INT INP/OBS CARE 3/75MIN Diagnoses Sepsis A41.9 Sepsis acute organ dysfunction status: unspecified Sepsis type: sepsis due to unspecified organism Gastroparesis K31.84 Intestinal malabsorption K90.9 Hypoglycemia E16.2 (1) Sepsis Sepsis acute organ dysfunction status: unspecified Sepsis type: sepsis due to unspecified organism Qualified Code(s): A41.9 - Sepsis, unspecified organism
[2022-04-27] MEDS ORDERED: DEXTROSE 50% 50 ML SYRINGE IV PRN (05:45)
[2022-04-27] MEDS ORDERED: GLUCOSE 40% GEL 15 GM TUBE PO PRN (05:45)
[2022-04-27] MEDS ORDERED: CARBOHYDRATES FOR HYPOGLYCEMIA PO PRN (05:45)
[2022-04-27] MEDS ORDERED: GLUCAGON FOR INJ 1 MG VIAL SQ PRN (05:45)
[2022-04-27] MEDS ORDERED: MoRPHine SULFATE 2 MG/ML CARP IV PRN (05:45)
[2022-04-27] MEDS ORDERED: DEXTROSE 10% 1,000 ML IV PRN (05:45)
[2022-04-27] MEDS ORDERED: GLUCOSE 10 TAB/TUBE PO PRN (05:45)
[2022-04-27] MEDS ORDERED: TPN/PPN CONSULT PHARMACY PRN (05:55)
[2022-04-27] MEDS: MoRPHine SULFATE 4 MG/ML 1 ML CARP\\VIAL IV PRN ×6 (06:11→21:28)
[2022-04-27] MEDS: diphenhydrAMINE 50 MG/ML VIAL IV SCH ×3 (06:11→18:13)
[2022-04-27] MEDS: ONDANSETRON INJ 2 MG/ML 2 ML VIAL IV SCH ×3 (06:12→18:13)
[2022-04-27] MEDS ORDERED: POTASSIUM CHLORIDE 20 MEQ in LACTATED RINGER'S 1,000 ML IV SCH (06:15)
[2022-04-27] MEDS: PIPERACILLIN/TAZOBACTAM 4.5 GM in DEXTROSE 5% 100 ML IV SCH ×3 (06:29→21:35)
[2022-04-27] MEDS: LORazepam 2 MG/1 ML VIAL IV PRN ×3 (07:56→21:28)
[2022-04-27] MEDS: ENOXAPARIN INJ 40 MG/0.4 ML SYR SQ SCH (07:58)
[2022-04-27] MEDS: FLUTICASONE/VILANTEROL 100/25MCG 14 PUFFS/INHALER INH SCH (07:59)
--- NOTE | 2022-04-27 09:01 | CT Scan Report ---
CT OF THE ABDOMEN AND PELVIS WITH CONTRAST CLINICAL HISTORY: Mid abdominal pain. Sepsis. COMPARISON STUDY: None. TECHNIQUE: Following IV administration of 86 mL of Optiray, axial images of the abdomen and pelvis we re obtained from the lung bases to the proximal femurs. Images were reviewed in the axial, sagittal, and coronal planes. IV contrast was administered without complication. Automated exposure control wa s utilized for the study. A dose lowering technique was utilized adhering to the principles of ALARA . CT DOSE: 1374.97 mGy.cm FINDINGS: Central venous catheter is partially imaged. Lung bases are unremarkable. No pneumatosis, f ree air or portal venous gas is present. No biliary ductal dilatation status post cholecystectomy. A 1.8 cm metallic density within the stomach is noted. This is probably iatrogenic. The spleen, adrenal glands, right kidney and pancreas are normal. There is no peripancreatic stranding. There is no panc reatic ductal dilatation. A 5 mm calculus within the lower pole of the left kidney is present. There are no ureteral calculi. There is no hydronephrosis. No evidence for a bowel obstruction. Right colon is mildly fluid-filled. The appendix is surgically absent. Major vasculature is patent. There is no lymphadenopathy. No acute fractures or suspicious lesions within the visualized skeletal structures a re present. IMPRESSION: 1. No bowel obstruction. No bowel wall thickening. No definite acute process within the abdomen and p ofelia. 2. 5 mm left renal calculus. No ureteral calculi or hydronephrosis. 3. 1.8 cm metallic density within the stomach. Although indeterminate, this is probably iatrogenic an d could be correlated with procedural history. ACT 112: Negative or not required by law. Electronically signed by: Saravanan Crystal M.D. 04/27/2022 9:00 AM
--- NOTE | 2022-04-27 09:16 | XRay Report ---
XR chest 1V portable CLINICAL HISTORY: Sepsis. COMPARISON STUDY: No previous studies for comparison. FINDINGS: Right-sided central venous catheter is in place. Lung volumes are normal. Lungs are clear. There is no pneumothorax or pleural effusion. Cardiac size is normal. Mediastinal contours are normal . There is no evidence for pulmonary edema. IMPRESSION: No acute cardiopulmonary findings. ACT 112: Negative or not required by law. Electronically signed by: Saravanan Crystal M.D. 04/27/2022 9:14 AM
--- NOTE | 2022-04-27 09:25 | Pharmacy Report ---
Pharmacy PK ABX Note - Date of Service April 27, 2022 - Assessment and Plan Assessment 27 year old F receiving vancomycin and zosyn empirically for sepsis coverage. Blood cultures pending. Renal function stable. Day # 1 of antimicrobial therapy. Plan Vancomycin * Loading dose: 2250 mg IV x 1 * Maintenance dose: 1000 mg IV every 12 hours * Regimen is predicted to achieve target AUC/ZAC of 400-600 mg/L.hr * Will obtain a level around steady state if vancomycin continued Pharmacy will continue to follow and will adjust dose/frequency as necessary. Thank you. Pharmacy has transitioned to AUC monitoring for vancomycin. AUC/ZAC is the preferred PK/PD target and is associated with decreased risk of nephrotoxicity compared to traditional trough targets.
[2022-04-27] MEDS: D5NSS + 20MEQ KCL 20 MEQ/1,000 ML BAG IV SCH ×2 (10:44→21:29)
[2022-04-27] MEDS: PANTOprazole 40 MG in SYRINGE 0 ML IV SCH (10:45)
[2022-04-27] MEDS: VANCOMYCIN HCL 1,000 MG in SODIUM CHLORIDE 0.9% 250 ML IV SCH (11:30)
--- NOTE | 2022-04-27 12:57 | Hospitalist Progress Note ---
Date of Service April 27, 2022 Assessment & Plan (1) Sepsis: Plan: Ruled out. Her symptoms may returned case inspector to be viral. Blood cultures negative to date but final report is pending. She remains on vancomycin and Zosyn for now. She has a history of gastroparesis, intestinal malabsorption and takes TPN therapy via right tunneled Brink catheter at nighttime. (2) Gastroparesis: Plan: Unfortunately she is allergic to metoclopramide. She takes very little by mouth. She is on TPN nightly. Supportive care. Zofran as needed for nausea. Ativan as needed for anxiety or nausea. Protonix 40 mg IV daily (3) Intestinal malabsorption: Plan: Patient reports longstanding history of intestinal malabsorption. She is to be evaluated at [facility] next month for consideration of an intestinal transplant. TPNpharmacy consultation has been placedpatient reports she runs her TPN over 12 hours at night. Typically begins at 9 PM. (4) Hypoglycemia: Plan: episodic hypoglycemia. She has a Dexcom in place. Low glucose noted upon arrival. She is on IV fluids with dextrose. Continue serial Accu-Cheks. (5) Gastroenteritis: Plan: Suspected viral etiology. Symptomatic care Plan Hopeful discharge to home tomorrow, April 28. If not, will admit from observation Admission and Anticipated Discharge Date Admission Date: April 27, 2022 Subjective Alert and pleasant. No acute distress. IV fluids changed to include dextrose to prevent recurrent hypoglycemia. Blood cultures final report pending but negative to date. She remains on intravenous vancomycin and Zosyn. This may simply be a viral illness however. Review of Systems Review of Systems: Constitutional-no fever or chills ENT-no blurred vision, no double vision, no epistaxis, no sore throat Respiratory-no cough, no wheezing, no shortness of breath Cardiac-no palpitations, no chest pain, no syncope GI-no vomiting, diarrhea, melena, hematochezia. She did present with nausea however -no urinary retention, no urinary incontinence, no dysuria, no hematuria Musculoskeletal-no joint pain, no muscle tenderness Skin-no bruising, no rashes, no pruritus Neuro-no isolated weakness, no paresthesia, no weakness Psych-no depression, no anxiety Physical Exam Physical Exam: General-alert and oriented x3, obese. Intermittent fevers and chills prior to admission HEENT-head atraumatic and normocephalic, pupils equal and reactive to light, extraocular muscles intact Neck-no lymphadenopathy or thyromegaly, trachea midline Chest-clear to auscultation percussion. No rales wheezing or rhonchi Cardiac-regular rate and rhythm, normal S1 and S2 Abdomen-normal bowel sounds, nontender, no hepatosplenomegaly Extremities-no cyanosis, clubbing, or edema Neuro-cranial nerves II through XII intact, motor and sensory function within normal limits, strength symmetrical , no focal deficits Psych-normal affect, normal mood Results & Data Results & Data ([facility]) Vital Signs (Past 12 Hours) Vital Signs Temp Pulse Pulse Resp BP BP Pulse Ox 04/27/22 07:41 36.9 C 92 H 18 91/60 L 97 04/27/22 07:07 04/27/22 05:45 36.7 C 94 H 18 119/83 96 04/27/22 05:30 94 H 16 108/62 99 04/27/22 05:00 100 H 16 112/67 99 04/27/22 04:30 102 H 16 118/65 98 04/27/22 04:00 96 H 15 115/71 98 04/27/22 03:30 98 H 16 116/73 96 04/27/22 03:00 105 H 16 141/71 H 98 04/27/22 02:30 101 H 17 121/81 97 04/27/22 02:00 105 H 17 114/74 97 04/27/22 01:24 103 H 15 116/78 96 O2 Del Method 04/27/22 07:41 Room Air 04/27/22 07:07 Room Air 04/27/22 05:45 Room Air 04/27/22 05:30 Room Air 04/27/22 05:00 Room Air 04/27/22 04:30 Room Air 04/27/22 04:00 Room Air 04/27/22 03:30 Room Air 04/27/22 03:00 Room Air 04/27/22 02:30 Room Air 04/27/22 02:00 Room Air 04/27/22 01:24 Room Air Laboratory Results 04/27/22 00:20 04/27/22 00:20 Ruled out. Blood cultures negative to date. She remains on intravenous vancomycin and Zosyn until final blood culture report is obtained. PG Care Time/CCT Total # of Minutes Spent Total Time Spent with Patient: Total time spent is greater than 50% in coordination of care (as documented) at patient's floor/unit and/or counseling patient: Coding Level of Care Code 97641 SUB INP/OBS CARE 3/50MIN Diagnoses Sepsis A41.9 Sepsis acute organ dysfunction status: unspecified Sepsis type: sepsis due to unspecified organism Gastroparesis K31.84 Intestinal malabsorption K90.9 Hypoglycemia E16.2 Gastroenteritis K52.9 (1) Sepsis Sepsis acute organ dysfunction status: unspecified Sepsis type: sepsis due to unspecified organism Qualified Code(s): A41.9 - Sepsis, unspecified organism
--- NOTE | 2022-04-27 14:08 | Pharmacy Report ---
PHA: Parenteral Nutrition Con - Date of Service April 27, 2022 - Scope Pharmacy was consulted on 04/27/22 to manage parenteral nutrition orders for this patient. - Subjective The patient is currently on day 1 of central parenteral nutrition for inpatient use. Patient admitted with sepsis, likely viral. Has a hx of gastroparesis, intestinal malabsorption and has TPN tx nightly via Brink catheter. Pt to be evaluated at [facility] next month for consideration of an intestinal transplant. Very little PO intake. - Objective Height: 5 ft 3 in Weight: 106.8 kg Diet: NPO Intake & Output (24hrs):: Intake & Output 04/25/22 04/26/22 04/27/22 04/28/22 06:59 06:59 06:59 06:59 Intake Total 2245 / 2245 1130 / 1130 Balance 2245 / 2245 1130 / 1130 Weight 71.8 kg 106.8 kg Laboratory Data (Last 24 Hr):: 04/27/22 00:20 Sodium 139 Potassium 3.3 L Chloride 105 Carbon Dioxide 26 BUN 11 Creatinine 1.04 Glucose 63 L Calcium 9.8 Magnesium 1.9 Total Bilirubin 0.5 AST 21 ALT 16 Alkaline Phosphatase 61 Albumin 4.9 Nutrition Assessment:: Please refer to the Notes section of the EMR for the most recent sign hanger note. - Assessment Patient brought in 1 TPN with her on admission, with the following formula: Macronutrients Amino acids 80 grams/day Dextrose 140 grams/day Lipids 50 grams/day on Mondays and Wednesdays Micronutrients Sodium phosphate 10 MMol Sodium chloride 50 mEq Sodium acetate 160 mEq Magnesium sulfate 12 mEq Trace Elements 1 mL 2200ml infused over 12 hours, 9pm to 9am - Plan For day 1 of inpatient PN administration, the following will be ordered: Macronutrients Amino acids 80 grams/day Dextrose 140 grams/day Lipids 0 grams/day today (will give 50 grams Friday and Friday) Micronutrients Sodium phosphate 9 MMol Sodium chloride 50 mEq Sodium acetate 160 mEq Potassium chloride 40 mEq (K low today at 3.3) Magnesium sulfate 12 mEq Trace Elements 1 mL Total volume 1127 mL to be infused over 12 hrs will provide 796 kcal/day Patient also continues on D5NSS + 20K+ @ 100cc/hr Labs, as indicated, will be ordered per protocol Pharmacy will continue to follow and adjust parenteral nutrition orders on a daily basis. Thank you for allowing us to participate in the care of this patient.
[2022-04-27] MEDS: PROMETHAZINE HCL 12.5 MG in SODIUM CHLORIDE 0.9% 50 ML IV PRN ×2 (15:37→21:46)
[2022-04-27] MEDS ORDERED: AMINO ACID 8% IV SCH (21:00)
[2022-04-27] MEDS ORDERED: [UNRECOGNIZED DRUG - OTHER] IV SCH (21:00)
[2022-04-27] MEDS ORDERED: CENTRAL TPN IV SCH (21:00)
--- NOTE | 2022-04-27 22:48 | Electrocardiogram Report ---
Test Reason : Blood Pressure : / mmHG Vent. Rate : 095 BPM Atrial Rate : 095 BPM P-R Int : 150 ms QRS Dur : 082 ms QT Int : 366 ms P-R-T Axes : 044 000 040 degrees QTc Int : 459 ms Normal sinus rhythm Normal ECG No previous ECGs available Confirmed by Bonilla Camargo ([id number]) on 04/27/2022 10:47:27 PM Referred By: REFERRED SELF Confirmed By:Bonilla Camargo
[2022-04-28] MEDS: diphenhydrAMINE 50 MG/ML VIAL IV SCH ×4 (00:25→18:11)
[2022-04-28] MEDS: MoRPHine SULFATE 4 MG/ML 1 ML CARP\\VIAL IV PRN ×8 (00:26→21:27)
[2022-04-28] MEDS: ONDANSETRON INJ 2 MG/ML 2 ML VIAL IV SCH ×4 (00:26→18:11)
[2022-04-28] MEDS: VANCOMYCIN HCL 1,000 MG in SODIUM CHLORIDE 0.9% 250 ML IV SCH (01:51)
[2022-04-28] MEDS: LORazepam 2 MG/1 ML VIAL IV PRN ×4 (03:33→20:09)
[2022-04-28] MEDS: PROMETHAZINE HCL 12.5 MG in SODIUM CHLORIDE 0.9% 50 ML IV PRN ×4 (04:12→22:19)
[2022-04-28] MEDS: PIPERACILLIN/TAZOBACTAM 4.5 GM in DEXTROSE 5% 100 ML IV SCH (05:45)
[2022-04-28] MEDS: D5NSS + 20MEQ KCL 20 MEQ/1,000 ML BAG IV SCH ×2 (06:14→15:13)
[2022-04-28 06:31] LABS: Basophils # (auto) 0.05 K/uL (0-0.2); Basophils % (auto) 1.4 %; Eosinophils # (auto) 0.35 K/uL (0-0.50); Eosinophils % (auto) 9.8 %; Hematocrit (blood only) 31.3 % (37.0-47.0); Hemoglobin 10.3 g/dl (12.0-16.0); Immature Granulocytes # (auto) 0.01 K/uL (0.01-0.20); Immature Granulocytes % (auto) 0.3 %; Lymphocytes # (auto) 1.68 K/uL (1.2-3.4); Lymphocytes % (auto) 46.9 %; Mean Corpuscular Hemoglobin 29.5 pg (25.0-34.0); Mean Corpuscular Hgb Conc 32.9 g/dL (32.0-36.0); Mean Corpuscular Volume 89.7 fL (80.0-100.0); Mean Platelet Volume 11.6 fL (9.4-12.4); Monocytes # (auto) 0.31 K/uL (0.11-0.59); Monocytes % (auto) 8.7 %; Neutrophils # (auto) 1.18 K/uL (1.40-6.50); Neutrophils % (auto) 32.9 %; Platelet Count 155 K/uL (130-400); RDW Coefficient of Variation 12.5 % (11.5-14.5); RDW Standard Deviation 40.9 fL (36.4-46.3); Red Blood Count 3.49 M/uL (4.20-5.40); White Blood Count 3.58 K/ul (4.8-10.8)
[2022-04-28 06:51] LABS: Alanine Aminotransferase 12 U/L (7-52); Albumin Level 3.5 gm/dl (3.4-5.0); Alkaline Phosphatase 42 U/L (34-104); Anion Gap 1 (3-11); Aspartate Aminotransferase 15 U/L (13-39); BUN Creatinine Ratio 11.3 (10-20); Bilirubin Direct 0.1 mg/dl (0-0.2); Bilirubin,Total 0.5 mg/dl (0.2-1.0); Blood Urea Nitrogen 9 mg/dl (6-23); C Reactive Protein < 0.50 mg/dl (0-0.5); Carbon Dioxide 29 mmol/L (21-32); Chloride 109 mmol/L (98-107); Creatinine Clr Calc Pharmacy 122.6 ml/min; Est GFR (African American) 116.3 ml/min; Est GFR (Non-African American) 100.3 ml/min; Glucose 89 mg/dl (70-99(Fasting)); Magnesium 1.8 mg/dl (1.7-2.4); Phosphorus 4.1 mg/dl (2.5-4.9); Sodium 139 mmol/L (136-145); Total Protein 6.4 gm/dl (6.0-8.3); Triglycerides 108 mg/dl (0-150)
[2022-04-28] MEDS: FLUTICASONE/VILANTEROL 100/25MCG 14 PUFFS/INHALER INH SCH (09:18)
[2022-04-28] MEDS: ENOXAPARIN INJ 40 MG/0.4 ML SYR SQ SCH (09:18)
[2022-04-28] MEDS: PANTOprazole 40 MG in SYRINGE 0 ML IV SCH (10:59)
[2022-04-28] MEDS ORDERED: VANCOMYCIN HCL 1,250 MG in SODIUM CHLORIDE 0.9% 250 ML IV SCH (12:00)
--- NOTE | 2022-04-28 14:05 | Hospitalist Progress Note ---
Date of Service April 28, 2022 Assessment & Plan (1) Sepsis: Plan: Ruled out. Her symptoms may shank turner to be viral. Blood cultures negative . Intravenous antibiotics discontinued. Treated with vancomycin and Zosyn on admission. (2) Gastroparesis: Plan: Unfortunately she is allergic to metoclopramide. She takes very little by mouth. She is on TPN nightly. Supportive care. Zofran as needed for nausea. Ativan as needed for anxiety or nausea. Continue protonix 40 mg IV daily (3) Intestinal malabsorption: Plan: Patient reports longstanding history of intestinal malabsorption. She is to be evaluated at [facility] next month for consideration of an intestinal transplant. TPNpharmacy consultation has been placedpatient reports she runs her TPN over 12 hours at night. Typically begins at 9 PM. (4) Hypoglycemia: Plan: episodic hypoglycemia. She has a Dexcom in place. Low glucose noted upon arrival. She is on IV fluids with dextrose. Continue serial Accu-Cheks. (5) Gastroenteritis: Plan: Suspected viral etiology. Symptomatic care Plan Hopeful discharge to home tomorrow, April 29. If nausea and vomiting p ersist, will consult gastroenterology Admission and Anticipated Discharge Date Admission Date: April 27, 2022 Subjective Continued nausea and intermittent vomiting will preclude discharge today. Cultures negative. Antibiotics discontinued. Continue IV fluids for now. If she continues to have problems tomorrow, gastroenterology will probably have to be consulted Review of Systems Review of Systems: Constitutional-no fever or chills ENT-no blurred vision, no double vision, no epistaxis, no sore throat Respiratory-no cough, no wheezing, no shortness of breath Cardiac-no palpitations, no chest pain, no syncope GI-intermittent nausea and vomiting persist. No diarrhea, melena, hematochezia. -no urinary retention, no urinary incontinence, no dysuria, no hematuria Musculoskeletal-no joint pain, no muscle tenderness Skin-no bruising, no rashes, no pruritus Neuro-no isolated weakness, no paresthesia, no weakness Psych-no depression, no anxiety Physical Exam Physical Exam: General-alert and oriented x3, obese. Intermittent fevers and chills prior to admission . Obese HEENT-head atraumatic and normocephalic, pupils equal and reactive to light, extraocular muscles intact Neck-no lymphadenopathy or thyromegaly, trachea midline Chest-clear to auscultation percussion. No rales wheezing or rhonchi Cardiac-regular rate and rhythm, normal S1 and S2 Abdomen-normal bowel sounds, nontender, no hepatosplenomegaly Extremities-no cyanosis, clubbing, or edema Neuro-cranial nerves II through XII intact, motor and sensory function within normal limits, strength symmetrical , no focal deficits Psych-normal affect, normal mood Results & Data Results & Data ([facility]) Vital Signs (Past 12 Hours) Vital Signs Temp Pulse Resp BP Pulse Ox O2 Del Method 04/28/22 07:46 36.9 C 85 18 113/75 95 Room Air Laboratory Results 04/28/22 05:23 04/28/22 05:23 PG Care Time/CCT Total # of Minutes Spent Total Time Spent with Patient: Total time spent is greater than 50% in coordination of care (as documented) at patient's floor/unit and/or counseling patient: Coding Level of Care Code 79818 SUB INP/OBS CARE 3/50MIN Diagnoses Sepsis A41.9 Sepsis acute organ dysfunction status: unspecified Sepsis type: sepsis due to unspecified organism Gastroparesis K31.84 Intestinal malabsorption K90.9 Hypoglycemia E16.2 Gastroenteritis K52.9 (1) Sepsis Sepsis acute organ dysfunction status: unspecified Sepsis type: sepsis due to unspecified organism Qualified Code(s): A41.9 - Sepsis, unspecified organism
[2022-04-28] MEDS ORDERED: AMINO ACID 8% IV SCH (21:00)
[2022-04-28] MEDS ORDERED: CENTRAL TPN IV SCH (21:00)
[2022-04-28] MEDS ORDERED: [UNRECOGNIZED DRUG - OTHER] IV SCH (21:00)
[2022-04-29] MEDS: MoRPHine SULFATE 4 MG/ML 1 ML CARP\\VIAL IV PRN ×8 (00:06→22:21)
[2022-04-29] MEDS: LORazepam 2 MG/1 ML VIAL IV PRN ×5 (00:06→23:18)
[2022-04-29] MEDS: ONDANSETRON INJ 2 MG/ML 2 ML VIAL IV SCH ×5 (00:06→23:18)
[2022-04-29] MEDS: diphenhydrAMINE 50 MG/ML VIAL IV SCH ×5 (00:07→23:18)
[2022-04-29] MEDS: D5NSS + 20MEQ KCL 20 MEQ/1,000 ML BAG IV SCH ×2 (00:51→09:45)
[2022-04-29] MEDS ORDERED: ALPRAZolam 0.5 MG TABLET PO PRN ×2 (01:35→08:17)
[2022-04-29] MEDS: PROMETHAZINE HCL 12.5 MG in SODIUM CHLORIDE 0.9% 50 ML IV PRN ×5 (03:09→22:20)
--- NOTE | 2022-04-29 08:18 | Hospitalist Progress Note ---
Date of Service April 29, 2022 Assessment & Plan (1) Intractable nausea and vomiting: Plan: Admitted with worsening of chronic abdominal pain, nausea and vomiting. CTAP with IV contrast with evidence of suspected previous surgical clip, but will attempt to get records of previous CTAP from outside hospital. Otherwise normal study. LFTs/lipase normal. No evidence of infection on labs/imaging to explain worsening symptoms. Has a history of gastroparesis, chronic abdominal pain, chronic malabsorption and oral intake issues requiring chronic TPN, and eosinophilic esophagitis. GI will not do endoscopy at this time, can try to revisit if symptoms do not improve with conservative measures. Continue home Benadryl/Zofran but scheduled, with Phenergan as needed for breakthrough nausea. Patient on oxycodone at home for pain -> morphine IV here for now. Patient's home benzodiazepine transitioned to lorazepam 0.5mg IV q4h given we do not carry dissolvable form of Xanax (home med). (2) Sepsis: Plan: Considered/suspected initially on admission as has had in the past, however has been ruled out as did not meet criteria. Blood cultures negative. Intravenous antibiotics discontinued (treated with vancomycin and Zosyn on admission). Afebrile, monitor for fevers. (3) Gastroparesis: Plan: Unfortunately she is allergic to metoclopramide (hives). She takes very little by mouth. She is on TPN nightly. Zofran/Phenergan as needed for nausea. Xanax as needed for anxiety. Continue Protonix 40 mg IV, increased to BID. Gastroenterology consulted; will trial Emend for nausea, otherwise no other changes at this time. (4) Intestinal malabsorption: Plan: Patient reports longstanding history of intestinal malabsorption. She is to be evaluated at [facility] next month for consideration of an intestinal transplant. TPNpharmacy consultation has been placedpatient reports she runs her TPN over 12 hours at night, typically starting at 9 PM. (5) Hypoglycemia: Plan: Episodic hypoglycemia. She has a Dexcom in place. Low glucose noted upon arrival. BSGs have been >70 throughout day following d/c if dextrose-containing fluids. Hypoglycemia protocol in event of low BSGs however not abnormal to have some mild fluctuations in BSG throughout the day. (6) Gastroenteritis: Plan: Suspected viral etiology. Symptomatic care as above. (7) Morbid obesity with BMI of 40.0-44.9, adult: Plan: Morbid obesity with BMI 42.1 kg/m*m on admission. Nutrition will continue to follow for TPN adjustment for appropriate caloric needs. Admission and Anticipated Discharge Date Admission Date: April 28, 2022 Subjective Continues to have nausea without vomiting despite prn medications ordered. Abdominal pain is near baseline. Feels overall run-down compared to her baseline. Is noting that some BSGs are in 70s but repeats are in 80s. No other symptoms reported at this time. Review of Systems Review of Systems: All systems reviewed & are unremarkable except as noted in Subjective Physical Exam Constitutional: well developed Respiratory: normal respiratory effort Cardiovascular: Rate/Rhythm: regular rate and regular rhythm Gastrointestinal (Abdomen): normal bowel sounds, soft, nontender, no hepatosplenomegaly Skin: no rashes right chest port without evidence of surrounding erythema, tenderness or warmth to palpation Psychiatric: Orientation: alert and oriented x 3 Results & Data Results & Data ([facility]) Vital Signs (Past 12 Hours) Vital Signs Temp Pulse Resp BP Pulse Ox O2 Del Method 04/29/22 07:33 37.3 C 95 H 18 112/77 99 Room Air 04/29/22 03:06 37.0 C 92 H 20 105/67 98 Room Air 04/28/22 23:56 37.2 C 94 H 20 127/86 97 Room Air 04/28/22 23:04 Room Air PG Care Time/CCT Total # of Minutes Spent Total Time Spent with Patient: Total time spent is greater than 50% in coordination of care (as documented) at patient's floor/unit and/or counseling patient: Coding Level of Care Code 69742 SUB INP/OBS CARE 3/50MIN Diagnoses Intractable nausea and vomiting R11.2 Sepsis A41.9 Sepsis acute organ dysfunction status: unspecified Sepsis type: sepsis due to unspecified organism Gastroparesis K31.84 Intestinal malabsorption K90.9 Hypoglycemia E16.2 Gastroenteritis K52.9 Morbid obesity with BMI of 40.0-44.9, adult E66.01; Z68.41 (1) Sepsis Sepsis acute organ dysfunction status: unspecified Sepsis type: sepsis due to unspecified organism Qualified Code(s): A41.9 - Sepsis, unspecified organism
[2022-04-29] MEDS: FLUTICASONE/VILANTEROL 100/25MCG 14 PUFFS/INHALER INH SCH (08:28)
[2022-04-29] MEDS: ENOXAPARIN INJ 40 MG/0.4 ML SYR SQ SCH (08:28)
[2022-04-29] MEDS ORDERED: LORazepam 0.5 MG TAB PO PRN (09:16)
[2022-04-29] MEDS: PANTOprazole 40 MG in SYRINGE 0 ML IV SCH ×2 (09:44→22:22)
[2022-04-29] MEDS ORDERED: FOSAPREPITANT DIMEGLUMINE 115 MG in 0.9 % SODIUM CHLORIDE 111.1667 ML IV ONE ×2 (09:59→10:30)
--- NOTE | 2022-04-29 10:03 | Gastrointestinal Consultation ---
Date of Consultation April 29, 2022 Assessment & Plan (1) Nausea: (2) Gastroparesis: (3) Eosinophilic esophagitis: Plan Not responding to her routine IV dosing of Benadryl & Zofran 4 mg q 6 hr which she takes at home as well; Discussed possible viral gastroenteritis vs gastropar esis flare vs EoE (though atypical symptoms) vs other -Can try Emend as she has not had improvement with Promethazine, Zofran & Benadryl. -Obtain copies of her previous CT scan recently performed at her home GI to compare the metallic density, though this is strongly suspected to be surgical clip. -Protonix 40 mg BID. -Discussed the goal would be to control her acute symptoms and transition her to the care of [facility] given her complex intestinal motility disorder. History of Present Illness Reason for Consultation: Nausea Attending Physician: Kirti Swift, History of Present Illness Patient is a 27 yo female who is currently hospitalized due to presenting for a concern for possible sepsis (did not meet sepsis criteria upon admission). She is not from the area and is visiting family here. She notes that she receives her routine GI care in [place]. She has a history of gastroparesis and has had G tubes in the past and notes that had complications so she was switched to a J tube. She notes that there were issues with the J tube as well and then she was switched to TPN nightly. She struggles to take anything by mouth. She has an appointment next month at [facility] for evaluation for intestinal transplant. She takes Zofran and Benadryl IV at home on a routine schedule, but notes that yesterday she developed dry-heaving and nausea and was unable to control her nausea with her usual regimen. It appears she received a dose of Promethazine as well without relief of symptoms. No melena, hematemesis, hematochezia. She notes some epigastric discomfort. H/H 10.3/31.3. No gross GI bleeding. CT imaging was performed and noted a 1.8 cm iatrogenic metallic object in the stomach presumably surgical. She notes she recently had a CT scan through her home GI and has not had surgical procedures since that CT scan. She gets frequent EGDs because she reportedly also has a history of Eosinophilic Esophagitis. She takes BID PPI therapy at home (Prevacid solutabs). No pertinent family history. Surgical history includes G tube, J tube, Appendectomy, & cholecystectomy. Allergies Allergy/AdvReac Type Severity Reaction Status Date / Time dicyclomine [From Bentyl] Allergy Severe Anaphylaxis Verified 05/22/21 22:54 levofloxacin [From Levaquin] Allergy Intermediate ITCHY HIVES Verified 05/22/21 22:54 metoclopramide [From Reglan] Allergy Intermediate ITCHY HIVES Verified 05/22/21 22:54 Home Medications Medication Instructions Recorded Confirmed Type alprazolam 0.5 mg disintegrating 0.5 mg PO TID PRN Anxiety 04/27/22 04/27/22 History tablet budesonide-formoterol HFA 160 2 puff inhalation BID 04/27/22 04/27/22 History mcg-4.5 mcg/actuation aerosol inhaler (Symbicort) oxycodone 5 mg/5 mL oral solution 5 mg PO Q4 04/27/22 04/27/22 History Patient History Medical History Dysautonomia Gastroparesis Hypoglycemia Intestinal malabsorption Surgical History History of appendectomy History of cholecystectomy S/P PICC central line placement Family History Other Cancer Hypertension Social History Smoking Status: Never smoker Second Hand Exposure: No; Do You Dip or Chew Tobacco: No; Tobacco Cessation Education Requested by Patient: No Hx Alcohol Use: No Hx Substance Use: Yes Prescribed Medications: Marijuana Preferred Language: Citizen Of [place] Coater Brake Linings Required: No Beliefs That Will Affect Care: None Current Living Situation: Family Other Information That Helps Us Care for You: No Feels Safe at Home: Yes Assistive Devices: None Review of Systems Constitutional: no fever and no chills Respiratory: no cough and no dyspnea Cardiovascular: no chest pain Gastrointestinal: + nausea; no vomiting (none today) Integumentary: no problem reported Psychiatric: no problem reported Hematologic / Lymphatic: no unexplained weight loss Physical Exam Constitutional: well developed Respiratory: normal respiratory effort Cardiovascular: Rate/Rhythm: regular rate and regular rhythm Gastrointestinal (Abdomen): normal bowel sounds, soft, nontender, no hepatosplenomegaly Musculoskeletal: Head/Neck/Chest: normocephalic Skin: no rashes Psychiatric: Orientation: alert and oriented x 3 Results & Data ([facility]) Vital Signs (Past 12 Hours) Vital Signs Temp Pulse Resp BP Pulse Ox O2 Del Method 04/29/22 07:33 37.3 C 95 H 18 112/77 99 Room Air 04/29/22 03:06 37.0 C 92 H 20 105/67 98 Room Air 04/28/22 23:56 37.2 C 94 H 20 127/86 97 Room Air 04/28/22 23:04 Room Air PG Care Time/CCT Total # of Minutes Spent Total Time Spent with Patient: Total time spent is greater than 50% in coordination of care (as documented) at patient's floor/unit and/or counseling patient: Coding Level of Care Code INP/OBS CONSULT LVL 4, 60 MIN Diagnoses Nausea R11.0 Gastroparesis K31.84 Eosinophilic esophagitis K20.0
[2022-04-29 11:05] LABS: BUN Creatinine Ratio 17.6 (10-20); Calcium 8.5 mg/dl (8.5-10.1); Creatinine Clr Calc Pharmacy 133.2 ml/min; Est GFR (African American) 127.8 ml/min; Est GFR (Non-African American) 110.3 ml/min; Magnesium 1.8 mg/dl (1.7-2.4); Phosphorus 3.7 mg/dl (2.5-4.9); Potassium 3.8 mmol/L (3.5-5.1)
[2022-04-29] MEDS ORDERED: LORazepam 2 MG/1 ML VIAL IV PRN (13:35)
[2022-04-29] MEDS ORDERED: SODIUM CHLORIDE 0.9% 1000ML 1,000 ML IV ONE (20:03)
[2022-04-29] MEDS ORDERED: AMINO ACID 8% IV SCH (21:00)
[2022-04-29] MEDS ORDERED: [UNRECOGNIZED DRUG - OTHER] IV SCH (21:00)
[2022-04-29] MEDS ORDERED: CENTRAL TPN IV SCH (21:00)
[2022-04-29] MEDS ORDERED: CLINOLIPID 20% IV FAT EMULSION 250 ML IV SCH (21:00)
[2022-04-30] MEDS: MoRPHine SULFATE 4 MG/ML 1 ML CARP\\VIAL IV PRN ×5 (01:30→15:12)
[2022-04-30] MEDS ORDERED: STOP CLINOLIPID ONE (03:00)
[2022-04-30] MEDS: LORazepam 2 MG/1 ML VIAL IV PRN ×3 (04:58→13:15)
[2022-04-30] MEDS: diphenhydrAMINE 50 MG/ML VIAL IV SCH ×2 (06:05→12:10)
[2022-04-30] MEDS: ONDANSETRON INJ 2 MG/ML 2 ML VIAL IV SCH ×2 (06:05→12:10)
[2022-04-30 07:13] LABS: Basophils # (auto) 0.06 K/uL (0-0.2); Basophils % (auto) 1.2 %; Eosinophils # (auto) 0.35 K/uL (0-0.50); Eosinophils % (auto) 7.2 %; Hematocrit (blood only) 32.2 % (37.0-47.0); Immature Granulocytes # (auto) 0.01 K/uL (0.01-0.20); Immature Granulocytes % (auto) 0.2 %; Lymphocytes # (auto) 2.16 K/uL (1.2-3.4); Lymphocytes % (auto) 44.2 %; Mean Corpuscular Hemoglobin 29.8 pg (25.0-34.0); Mean Corpuscular Hgb Conc 34.2 g/dL (32.0-36.0); Mean Corpuscular Volume 87.3 fL (80.0-100.0); Mean Platelet Volume 10.9 fL (9.4-12.4); Monocytes # (auto) 0.44 K/uL (0.11-0.59); Neutrophils # (auto) 1.87 K/uL (1.40-6.50); Neutrophils % (auto) 38.2 %; Platelet Count 175 K/uL (130-400); RDW Standard Deviation 38.3 fL (36.4-46.3); Red Blood Count 3.69 M/uL (4.20-5.40); White Blood Count 4.89 K/ul (4.8-10.8)
[2022-04-30 07:31] LABS: BUN Creatinine Ratio 25.9 (10-20); Calcium 8.6 mg/dl (8.5-10.1); Est GFR (African American) 108.1 ml/min; Est GFR (Non-African American) 93.2 ml/min; Potassium 4.5 mmol/L (3.5-5.1)
[2022-04-30] MEDS: PANTOprazole 40 MG in SYRINGE 0 ML IV SCH (08:08)
[2022-04-30] MEDS: ENOXAPARIN INJ 40 MG/0.4 ML SYR SQ SCH (08:09)
[2022-04-30] MEDS: FLUTICASONE/VILANTEROL 100/25MCG 14 PUFFS/INHALER INH SCH (08:09)
[2022-04-30] MEDS ORDERED: [UNRECOGNIZED DRUG - REMARK] SCH (09:00)
--- NOTE | 2022-04-30 09:57 | Pharmacy Report ---
PHA: Parenteral Nutrition Con - Date of Service April 30, 2022 - Scope Pharmacy was consulted on 04/27/22 to manage parenteral nutrition orders for this patient. - Subjective The patient is currently on day 4 of inpatient central parenteral nutrition. - Objective Height: 5 ft 3 in Weight: 107.8 kg Diet: NPO Intake & Output (24hrs):: Intake & Output 04/28/22 04/29/22 04/30/22 05/01/22 06:59 06:59 06:59 06:59 Intake Total 4381.5 / 4381.5 3347.333 / 3347.333 4354.733 / 4354.733 Balance 4381.5 / 4381.5 3347.333 / 3347.333 4354.733 / 4354.733 Weight 106.8 kg 107.8 kg 107.8 kg Laboratory Data (Last 24 Hr):: 04/29/22 04/30/22 09:40 06:57 Sodium 138 138 Potassium 3.8 4.5 Chloride 108 H 107 Carbon Dioxide 27 31 BUN 13 22 Creatinine 0.74 0.85 Glucose 90 105 H Calcium 8.5 8.6 Phosphorus 3.7 4.0 Magnesium 1.8 2.0 Nutrition Assessment:: Please refer to the Notes section of the EMR for the most recent ball warper tender note. - Assessment * Patient with complicated GI history, requiring chronic TPN due to intestinal motility disorder/malabsorption w/ intractable N&V * Home TPN: * Macronutrients * Amino acids 80 grams/day * Dextrose 140 grams/day * Lipids 50 grams/day on Mondays and Wednesdays * Micronutrients * Sodium phosphate 10 MMol * Sodium chloride 50 mEq * Sodium acetate 160 mEq * Magnesium sulfate 12 mEq * Trace Elements 1 mL * 2200ml infused over 12 hours, 9pm to 9am * Given use of Clinimix here while inpatient, macronutrients will be dispersed differently. Discussed TPN formula with dietary yesterday and agree to proceed with daily lipids for now given current triglyceride level of 108 mg/dL since this will boost calories. * Will pull back on lipids if patient doesn't tolerate, or we see a meaningful change in triglyceride levels * Unclear why D5/NSS + 20 KCl @100 mL/hr infusing 04/27-04/29, discussed with provider and discontinued additional maintenance fluid * Monitor weight, labs, and I&Os to assess fluid balance * Electrolytes have been largely stable - will continue home TPN electrolytes today - Plan For day 4 of inpatient PN administration, the following will be ordered: Macronutrients Amino acids 115 grams/day Dextrose 202 grams/day Lipids 50 grams/day Micronutrients Sodium phosphate 10 MMol Sodium chloride 50 mEq Sodium acetate 160 mEq Magnesium sulfate 12 mEq Multivitamins 10 mL Trace Elements 1 mL Total volume 1557 mL to be infused over 12 hrs will provide 1646 kcal/day Labs, as indicated, will be ordered per protocol Pharmacy will continue to follow and adjust parenteral nutrition orders on a daily basis. Thank you for allowing us to participate in the care of this patient.
--- NOTE | 2022-04-30 11:10 | Gastroenterology Progress Note ---
Date of Service April 30, 2022 Assessment & Plan (1) Gastroparesis: (2) Nausea: Plan Offered further treatment (topical corticosteroids) for patient's EoE in the event this is triggering her symptoms. She declines. She is currently on Protonix 40 mg BID, IV Benadryl, & IV Zofran. She has been administered Promethazine as well. Emend reportedly made her nausea & vomiting worse. She is allergic to Reglan. At this venture, could try rectal Phenergan suppositories instead to see if this provides more relief, however this patient's GI issues have been evaluated and treated extensively through her home GI without improvement to her overall picture thus leading to them referring her to a tertiary center. I agree with this plan as ultimately this situation will require a higher level of care. Admission and Anticipated Discharge Date Admission Date: April 28, 2022 Subjective Patient is a 27 yo female with long-standing gastroparesis admitted with acute n/v. The patient reports her symptoms worsened with Emend yesterday. She notes that she has tried all of the medications we are suggesting including the treatments proposed today and "none of them work and I get every side effect in the book." She is currently on a regimen of standing doses of Zofran & Benadryl. She has received Promethazine. She is resting in bed. No emesis at the time of my visit. She notes she has not tried to eat or drink. Review of Systems Constitutional: no fever and no chills Gastrointestinal: + nausea and + vomiting Physical Exam Constitutional: well developed Respiratory: normal respiratory effort Psychiatric: Orientation: alert and oriented x 3 Results & Data Results & Data ([facility]) Vital Signs (Past 12 Hours) Vital Signs Temp Pulse Resp BP BP Pulse Ox O2 Del Method 04/30/22 07:52 36.5 C 85 18 115/82 99 Room Air 04/30/22 00:10 Room Air 04/29/22 23:23 37.8 C H 118 H 20 144/103 H 100 Room Air PG Care Time/CCT Total # of Minutes Spent Total Time Spent with Patient: Total time spent is greater than 50% in coordination of care (as documented) at patient's floor/unit and/or counseling patient: Coding Level of Care Code 43078 SUB INP/OBS CARE 2/35MIN Diagnoses Gastroparesis K31.84 Nausea R11.0
--- NOTE | 2022-04-30 12:42 | Discharge Summary ---
Discharge Summary Date of Service April 30, 2022 Admission HPI Per Admitting Provider Yossi Garcia is a 27-year-old female presenting with concern for early sepsis. Patient with history of gastroparesis, intestinal malabsorption and episodic hypoglycemia. She has a PICC line in place for TPN and medication administration. Patient has had multiple episodes of sepsis and bacteremia in the past. Her infections seem to involve the line. She has also had infections that were thought to be secondary to bacterial translocation from her gut. Her last line infection was in January 2022. She reports that the pathogen was Staphylococcus. She does not think that it was aureus and for sure knows it was not MRSA. She had an echocardiogram performed which she reports is being normal. She had her port removed and placement of a PICC line to complete her course of IV antibiotics. After her blood cultures were cleared she had a double-lumen Brink placed on 03/06/[address] to this day. She resides in [place], [place] and is currently visiting family in the [facility]. Patient reports episodes of hypoglycemia over the last 2 to 3 days. Blood sugar at times will drop into the 50s. This evening patient hooked up to her TPN. Approximate 15 minutes after her infusion started she got chills, severe nausea, abdominal pain and body aches. She checked her temperature at that time and it was 100.7. Patient subsequently came to the ER for further evaluation due to concern for early sepsis. She denies URI/cough/cold symptoms, denies diarrhea, denies urinary complaints, denies skin rash or joint pain. In the ER patient is afebrile, tachycardic at 112 bpm, blood pressure is stable. No respiratory distress, saturating well on room air. She is complaining of abdominal pain as well as full body pain and feeling sick. ER course: Normal saline x2 L Morphine 4 mg IV x2 doses Ativan 1 mg IV Zosyn 4.5 g IV Zofran 4 mg IV Benadryl 50 mg IV Vancomycin Admission Exam Per Admitting Provider General: patient resting comfortably, NAD, appears tired and ill but nontoxic dry, AA&O x 4 Skin: warm, dry, intact, no rashes or lesions. No Osler's nodes, Janeway lesions, or splinter hemorrhaging noted on digits HEENT: NC/AT, PERRL, EOMI, anicteric sclera, conjunctiva without injection, external ear normal to inspection and nontender, nares patent, dry mucus membranes, dentition intact, no oropharyngeal lesions, neck supple, trachea midline, no LAD, no thyromegaly, no JVD Heart: +S1/S2, regular, tachycardic, no m/r/g, right chest Brink in place with mild tenderness to palpation Lungs: equal air entry bilaterally, no rales/rhonchi/wheezes Abd: +BS, soft, ND, diffusely tender without rebound or guarding, no beatrice s/organomegaly/ascites Ext: warm, 2+ pulses in UE/LE bilaterally, no clubbing/cyanosis or edema Neuro: nonfocal, patient AA&O x 4, speech intact, no facial droop, moving all extremities on command with equal strength 5/5 Principal Dx & Hospital Course #1 = Principal Diagnosis (1) Intractable nausea and vomiting: Admitted with worsening of chronic abdominal pain, nausea and vomiting. CTAP with IV contrast with evidence of suspected previous surgical clip, but will attempt to get records of previous CTAP from outside hospital. Otherwise normal study. LFTs/lipase normal. No evidence of infection on labs/imaging to explain worsening symptoms. Has a history of gastroparesis, chronic abdominal pain, chronic malabsorption and oral intake issues requiring chronic TPN, and eosinophilic esophagitis. GI will not do endoscopy at this time; patient declines treatment for eosinophilic esophagitis with steroids without confirming with EGD. This is less likely than natural disease progression/gastroenteritis given not presenting like previous episodes of EE. As symptoms are stable to mildly improved, after discussion with patient we will discharge home with close follow up with home Gastroenterologists, and if worsening in symptoms she will report to her home hospital given their ability for tertiary care. Patient on oxycodone at home for pain ,continue. Continue home benzo for anxiety. (2) Sepsis: Considered/suspected initially on admission as has had in the past, however has been ruled out as did not meet criteria. Blood cultures negative. Intravenous antibiotics discontinued (treated with vancomycin and Zosyn on admission). Afebrile this admission. (3) Gastroparesis: Unfortunately she is allergic to metoclopramide (hives). She takes very little by mouth. She is on TPN nightly. Zofran as needed for nausea. Xanax as needed for anxiety. Gastroenterology consulted; Emend trialed for nausea without improvement, otherwise no interventions or procedures recommended. (4) Intestinal malabsorption: Patient reports longstanding history of intestinal malabsorption. She is to be evaluated at [facility] next month for consideration of an intestinal transplant. (5) Hypoglycemia: Episodic hypoglycemia. She has a Dexcom in place. Low glucose noted upon arrival. BSGs have been >70 throughout admission following d/c if dextrose- containing fluids. Discussion normal fluctuations in BSG with patient and hy poglycemia precautions reviewed. (6) Gastroenteritis: Suspected viral etiology. Symptomatic care as above. (7) Morbid obesity with BMI of 40.0-44.9, adult: Morbid obesity with BMI 42.1 kg/m*m on admission. Discharge Exam Constitutional WD/WN, vitals as above Respiratory normal respiratory effort, lungs clear to auscultation Cardiovascular RRR, no murmur, no edema Gastrointestinal (Abdomen) abdomen soft, mildly tender throughout without rebound or guarding Psychiatric A+Ox3, euthymic affect Updated Medication List Medication Instructions Recorded Confirmed Type alprazolam 0.5 mg disintegrating 0.5 mg PO TID PRN Anxiety 04/27/22 04/27/22 History tablet budesonide-formoterol HFA 160 2 puff inhalation BID 04/27/22 04/27/22 History mcg-4.5 mcg/actuation aerosol inhaler (Symbicort) oxycodone 5 mg/5 mL oral solution 5 mg PO Q4 04/27/22 04/27/22 History Hospital Stay Data Consultations 04/27/22 02:21 ED Decision to Admit Stat 04/29/22 08:20 Consult Gastroenterology Routine Diagnostic Imagining Performed 04/27/22 00:12 CT Abd and Pelvis [CT abd pelvis IV con only] Urgent Discharge Instructions Given to Patient (Per Discharging Provider) You were evaluated in the hospital for sepsis since you were having worsening body pain/belly pain and nausea. Fortunately, you did not have any evidence of infection on labwork or CT scans. We gave you fluids, and IV medications for pain and nausea. Your symptoms improved a little, and you were felt to be safe for discharge home with close follow up with your GI doctors in [place] at home. We recommend you continue your home medications for nausea and pain, as well as your vape if that helps your symptoms. Because your symptoms were not typical for your eosinophilic esophagitis history and given risk/benefit concerns, we did not start you on steroids. We recommend you follow up closely with your doctors at home to determine next steps for your worsening chronic pains, and to see if they have other concerns not addressed by this facility. If you have any urgent medical concerns please seek out urgent medical evaluation. It was a pleasure taking care of you. Total Time Total Time Spent Total Time Spent (In Minutes): 35 mins Coding Level of Care Code HOSP INP/OBS DISCH >30 MIN Diagnoses Intractable nausea and vomiting R11.2 Sepsis A41.9 Sepsis acute organ dysfunction status: unspecified Sepsis type: sepsis due to unspecified organism Gastroparesis K31.84 Intestinal malabsorption K90.9 Hypoglycemia E16.2 Gastroenteritis K52.9 Morbid obesity with BMI of 40.0-44.9, adult E66.01; Z68.41
[2022-04-30] MEDS: PROMETHAZINE HCL 12.5 MG in SODIUM CHLORIDE 0.9% 50 ML IV PRN (13:15)
[2022-04-30] MEDS ORDERED: AMINO ACID 8% IV SCH (21:00)
[2022-04-30] MEDS ORDERED: CLINOLIPID 20% IV FAT EMULSION 250 ML IV SCH (21:00)
[2022-04-30] MEDS ORDERED: CENTRAL TPN IV SCH (21:00)
[2022-04-30] MEDS ORDERED: [UNRECOGNIZED DRUG - OTHER] IV SCH (21:00)
[2022-05-01] MEDS ORDERED: STOP CLINOLIPID SCH (03:00)
== END 2022-04-30 17:51 | disposition home or self-care (01) | DRG 392 ==
LOC: 2W 23:40 → ED 23:40 → SUATTDRO 04-27 03:18 → 2W 04-27 05:31 → SUATTDRO 04-28 14:05 → 2W 04-29 22:44